=== PATIENT | female | born 1950 | race Caucasian/White ===

== ENCOUNTER 2017-05-24 07:46 | Day surgery (SDC) | payer MEDICARE, BC ==
[~2017-05-24 07:46] MED LIST: KETOROLAC TROMETHAMINE 0.45% 4 DROP/0.4 ML DROPERETTE OS PRN
[2017-05-24] MEDS: LIDOCAINE 3.5% OPH GEL/PF 1 ML/TUBE OS PRN ×3 (08:12→09:22)
[2017-05-24] MEDS: CYCLOPENTOLATE 0.2%/PHENYLEPHRINE 1% OPH SOLN 2 ML OS PRN ×3 (08:13→08:40)
[2017-05-24] MEDS: TROPICAMIDE 1% OPH SOLN 3 ML OS PRN ×3 (08:13→08:40)
[2017-05-24] MEDS: BESIFLOXACIN HCL 0.6% OPH SUSP 5 ML BOTTLE OS PRN ×4 (08:14→09:50)
[2017-05-24] MEDS ORDERED: EPINEPHRINE INJ/PF 1 MG/1 ML AMPULE ONE (08:32)
[2017-05-24] MEDS ORDERED: CHONDR SU A NA/HYALUR INTRAOC KIT (SURGICARE) ONE (08:33)
[2017-05-24] MEDS ORDERED: LIDOCAINE 1% INJ-PF (10 MG/ML) 30 ML SDV ONE (08:33)
[2017-05-24] MEDS ORDERED: MIDAZOLAM 2 MG/2 ML INJ ONE (09:03)
[2017-05-24] MEDS: CHONDR SU A NA/HYALUR SOD 0.5 ML DISP.SYRIN ONE ×2 (09:42)
[2017-05-24] MEDS: TOBRAMYCIN SULFATE/DEXAMETH OPH OINTMENT 3.5 GM ONE ×2 (09:50)
[2017-05-24] MEDS ORDERED: GLYCOPYRROLATE INJ 0.4 MG/2 ML VIAL ONE (09:58)
== END 2017-05-24 10:43 | disposition home or self-care (01) ==
LOC: SC 07:46
PROVIDERS: ATTEND Ophthalmology
PROC: 089330Z Drainage of Left Anterior Chamber with Drainage Device, Percutaneous Approach (ICD-10-PCS; 2017-05-24)
PROC: 08RK3JZ Replacement of Left Lens with Synthetic Substitute, Percutaneous Approach (ICD-10-PCS; principal; 2017-05-24 09:00)
DX: H25.12 Age-related nuclear cataract, left eye (principal); H40.1131 Primary open-angle glaucoma, bilateral, mild stage; K21.9 Gastro-esophageal reflux disease without esophagitis; I10 Essential (primary) hypertension; E66.9 Obesity, unspecified; Z88.8 Allergy status to other drugs, medicaments and biological substances; Z68.35 Body mass index [BMI] 35.0-35.9, adult; Z79.899 Other long term (current) drug therapy
CPT/HCPCS: 0191T; 66984; 142; A9270 GY; C1783; J0171; J2250; J3490; V2787

== ENCOUNTER 2017-06-07 09:41 | Day surgery (SDC) | payer MEDICARE, BC ==
[~2017-06-07 09:41] MED LIST changes: +CHONDR SU A NA/HYALUR INTRAOC KIT (SURGICARE) ONE; +EPINEPHRINE INJ/PF 1 MG/1 ML AMPULE ONE; +KETOROLAC TROMETHAMINE 0.45% 4 DROP/0.4 ML DROPERETTE OD PRN; -KETOROLAC TROMETHAMINE 0.45% 4 DROP/0.4 ML DROPERETTE OS PRN; +LIDOCAINE 1% INJ-PF (10 MG/ML) 30 ML SDV ONE
[2017-06-07] MEDS: TROPICAMIDE 1% OPH SOLN 3 ML OD PRN ×3 (10:06→10:26)
[2017-06-07] MEDS: CYCLOPENTOLATE 0.2%/PHENYLEPHRINE 1% OPH SOLN 2 ML OD PRN ×3 (10:06→10:26)
[2017-06-07] MEDS: BESIFLOXACIN HCL 0.6% OPH SUSP 5 ML BOTTLE OD PRN ×4 (10:06→11:12)
[2017-06-07] MEDS: LIDOCAINE 3.5% OPH GEL/PF 1 ML/TUBE OD PRN ×2 (10:07→10:26)
[2017-06-07] MEDS ORDERED: MIDAZOLAM 2 MG/2 ML INJ ONE ×2 (10:29)
[2017-06-07] MEDS: TOBRAMYCIN SULFATE/DEXAMETH OPH OINTMENT 3.5 GM ONE ×2 (11:12)
[2017-06-07] MEDS ORDERED: CHONDR SU A NA/HYALUR SOD 0.5 ML DISP.SYRIN ONE (11:47)
== END 2017-06-07 11:48 | disposition home or self-care (01) ==
LOC: SC 09:41
PROVIDERS: ATTEND Ophthalmology
PROC: 089230Z Drainage of Right Anterior Chamber with Drainage Device, Percutaneous Approach (ICD-10-PCS; 2017-06-07)
PROC: 08RJ3JZ Replacement of Right Lens with Synthetic Substitute, Percutaneous Approach (ICD-10-PCS; principal; 2017-06-07 10:45)
DX: H25.11 Age-related nuclear cataract, right eye (principal); Z79.899 Other long term (current) drug therapy; Z98.42 Cataract extraction status, left eye; K21.9 Gastro-esophageal reflux disease without esophagitis; I10 Essential (primary) hypertension; H40.1111 Primary open-angle glaucoma, right eye, mild stage
CPT/HCPCS: 0191T; 66984; 142; A9270 GY; C1783; J0171; J2250; J3490; V2787